=== PATIENT | female | born 1980 | race Caucasian/White ===

== ENCOUNTER 2020-10-24 14:48 | Emergency (ER) | payer BC, SELFPAY ==
--- NOTE | ~2020-10-24 | CT_ITS ---
EXAMINATION: CT brain wo con DATE: 10/24/2020 16:59 INDICATION: Occipital headache TECHNIQUE: Computed tomography (CT) of the head was performed without intravenous contrast. Sagittal and coronal reconstructions were performed. The mA was adjusted according to patient size. Iterative reconstruction technique was employed. The dose-length product was 605.33 mGy-cm. COMPARISON: None FINDINGS: No acute intracranial hemorrhage, acute infarction or abnormal extra axial fluid collection. Ventricl es are normal and symmetric. No mass/mass effect. The orbits, paranasal sinuses and mastoid air cells are normal. IMPRESSION: 1. Normal head CT. Reviewed, dictated and finalized at location A. IMPRESSION: 1. Normal head CT.
[2020-10-24 15:05] VITALS: BP 122/60; PULSE 91; RESP 14; TEMP 36.7; O2SAT 99
[2020-10-24 16:14] LABS: Add Urine Microscopic? YES; Amorphous Sediment Urine Few; Appearance Urine Cloudy (Clear); Bacteria Urine 4+ /hpf; Bilirubin Urine Negative (Negative); Blood Urine Negative (Negative); Color Urine Yellow (Yellow); Glucose Urine UA Negative (Negative); Ketones Urine 2+ mg/dL (Negative); Leukocyte Esterase Ur 1+ LEU/UL (Negative); Mucus Urine Few /lpf; Nitrate Urine Negative (Negative); Protein Urine 1+ mg/dL (Negative); RBC Urine 0-2 /hpf (0-2); Specific Grav Ur 1.012 (1.001-1.035); Squamous Epithelial Cell Urine Many /hpf (Few); Urobilinogen Urine Negative mg/dL (<2.0)
[2020-10-24 17:00] VITALS: BP 126/72; PULSE 87; RESP 20; O2SAT 99
[2020-10-24 17:00] LABS: Basophils Percent Auto 0.4 % (0.2-1.2); Eosinophils Absolute Auto 0.1 K/mm3 (0-0.3); Eosinophils Percent Auto 1.6 % (0-4.4); Hematocrit 38.6 % (37.0-47.0); Hemoglobin 12.5 g/dL (12.0-15.0); Immature Granulocyte Absolute 0.04 K/mm3 (0.00-0.031); Immature Granulocyte Percent A 0.6 % (0-0.5); Lymphocytes Absolute Auto 0.88 K/mm3 (0.9-3.2); Lymphocytes Percent Auto 13.1 % (18.3-44.2); Mean Corpuscular HGB Conc 32.4 g/dl (32-36); Mean Corpuscular Hemoglobin 30.1 pg (26-34); Mean Platelet Volume 10.3 fl (7.4-10.4); Monocytes Absolute Auto 0.4 K/mm3 (0.1-0.6); Monocytes Percent Auto 6.4 % (2.6-8.5); Neutrophils Absolute Auto 5.2 K/mm3 (1.3-6.7); Neutrophils Percent Auto 77.9 % (45.5-73.1); Platelet Count Result 276 k/mm3 (150-375); Red Blood Count 4.15 M/mm3 (4.2-5.4); Red Cell Distribution Width 11.7 % (11.5-14.5); White Blood Count 6.7 K/mm3 (4.5-10.0)
[2020-10-24] MEDS: SODIUM CHLORIDE 0.9% IV 1,000 ML 999 ML IV CONT (17:10)
[2020-10-24] MEDS: MORPHINE SULFATE (*CRX) 4 MG/ML INJ IV PUSH (17:10)
[2020-10-24] MEDS: diphenhydrAMINE HCl INJ 50 MG/ML VIAL 25 MG IV PUSH (17:10)
[2020-10-24] MEDS: PROCHLORPERAZINE EDISYLATE 10 MG/2 ML VIAL 5 MG IV PUSH (17:47)
[2020-10-24 18:13] LABS: Alanine Aminotransferase 28 U/L (4-35); Albumin Level 4.1 g/dL (3.5-5.1); Alkaline Phosphatase 40 U/L (38-126); Anion Gap 7 mmol/L (8-16); Aspartate Amino Transferase 32 U/L (14-36); Bilirubin,Total 0.6 mg/dL (0.2-1.3); Blood Urea Nitrogen 5 mg/dL (7-17); Calcium 8.9 mg/dL (8.4-10.2); Carbon Dioxide 25 mmol/L (22-30); Chloride 107 mmol/L (98-107); Estimated CRCL calculation 114 ml/min; Estimated Glomerular Filt Rate > 60; Glucose 106 mg/dL (65-105); Potassium 3.8 mmol/L (3.4-5.0); Sodium 139 mmol/L (137-145)
--- NOTE | 2020-10-24 18:33 | ED.HA ---
HPI - Headache General Chief Complaint: Headache Stated Complaint: Headache and neck Pain Time Seen by Provider: 10/24/20 16:32 Source: patient and family Mode of arrival: ambulatory Limitations: no limitations History of Present Illness HPI Narrative: 40-year-old with no major medical problems here with complaints of having headache associated with nausea and vomiting. She is states it started this morning unable to control her nausea and vomiting. She denies any fever. No previous history of any migraine headaches. MD elicited complaint: headache Onset description: gradually Location: frontal Severity: moderate Quality & Timing: throbbing Exacerbating factors: none Relieving factors: nothing Associated symptoms: nausea and vomiting Treatments prior to arrival: none Related Data Allergies Allergy/AdvReac Type Severity Reaction Status Date / Time Penicillins Allergy Mild Swelling Verified 06/12/10 13:03 codeine AdvReac Mild Nausea and Verified 06/12/10 20:02 Vomiting Review of Systems Review of Systems: All systems reviewed & are unremarkable except as noted in HPI and below Constitutional: Constitutional: Reports no additional constitutional complaints Eyes: Eyes: Reports no additional eye complaints ENT: Reports system reviewed and no additional complaints, except as documented Cardiovascular: Cardiovascular: Reports no additional cardiovascular complaints Respiratory: Respiratory: Reports no additional respiratory complaints Gastrointestinal: Gastrointestinal: Reports nausea and Reports vomiting Musculoskeletal: Musculoskeletal: Reports no additional musculoskeletal complaints Neurologic: Reports as per HPI Psychiatric: Psychiatric: Reports no additional psychiatric complaints PMFSH Social History Social History Gender identity (if verbalized by the patient): Female Exam Narrative: Exam Narrative: GENERAL: Well-appearing, well-nourished, and in no acute distress. HEAD: Normocephalic, atraumatic. EYES: PERRLA and EOMI. ENT: Nares clear, no rhinorrhea or epistaxis. Mucous membranes moist. NECK: Supple. CHEST: Clear to auscultation. No respiratory distress. HEART: Regular rate and rhythm. No murmur heard. Normal peripheral pulses. ABDOMEN: Soft, nontender, nondistended, normal active bowel sounds. EXTREMITIES: Normal range of motion. No edema. SKIN: Warm, dry, no rash. NEURO: No focal deficits. Alert and oriented x3. PSYCH: Normal mood and affect. Course Course Emergency Course: Patient feeling much better after IV fluids, Compazine and morphine. I discussed lab and CT findings with the patient. She does feel comfortable going home Vital Signs Vital signs: Vital Signs Temperature 36.7 C 10/24/20 15:05 Pulse Rate 91 10/24/20 15:05 Respiratory Rate 14 10/24/20 15:05 Blood Pressure 122/60 10/24/20 15:05 Pulse Oximetry 99 10/24/20 15:05 Temperature 36.7 C 10/24/20 15:05 Pulse Rate 91 10/24/20 15:05 Respiratory Rate 14 10/24/20 15:05 Blood Pressure 122/60 10/24/20 15:05 Pulse Oximetry 99 10/24/20 15:05 MDM - Headache Lab Data Result diagrams: 10/24/20 15:31 10/24/20 17:58 Labs: Lab Results 10/24/20 10/24/20 10/24/20 Range/Units 15:31 16:01 17:58 WBC 6.7 (4.5-10.0) K/mm3 RBC 4.15 L (4.2-5.4) M/mm3 Hgb 12.5 (12.0-15.0) g/dL Hct 38.6 (37.0-47.0) % MCV 93.0 (80-100) fl MCH 30.1 (26-34) pg MCHC 32.4 (32-36) g/dl RDW 11.7 (11.5-14.5) % Plt Count 276 (150-375) k/mm3 MPV 10.3 (7.4-10.4) fl Immature Gran % (Auto) 0.6 H (0-0.5) % Neut % (Auto) 77.9 H (45.5-73.1) % Lymph % (Auto) 13.1 L (18.3-44.2) % [place] % (Auto) 6.4 (2.6-8.5) % Eos % (Auto) 1.6 (0-4.4) % Baso % (Auto) 0.4 (0.2-1.2) % Lymph # (Auto) 0.88 L (0.9-3.2) K/mm3 [place] # (Auto) 0.4 (0.1-0.6) K/mm3 Eos # (Auto) 0.1
[2020-10-24 18:53] VITALS: BP 132/78; PULSE 72; RESP 18; O2SAT 99
== END 2020-10-24 18:54 | disposition home or self-care (01) ==
PROVIDERS: Emergency Provider Family Medicine; PCP Internal Medicine
DX: G43.019 Migraine without aura, intractable, without status migrainosus (principal)
CPT/HCPCS: 36415; 70450; 80053; 81001; 81025; 85025; 87086; 87088; 96361; 96374; 96375; 99284; J0780; J1200; J2270; J7030

== ENCOUNTER → 2020-10-29 14:16 | Outpatient (CLI) | payer BC, SELFPAY ==
--- NOTE | ~2020-10-29 | CT_ITS ---
EXAMINATION: CT abdomen pelvis wo/w con DATE: 10/29/2020 14:56 INDICATION: Recurrent UTIs. Flank pain. TECHNIQUE: Computed tomography (CT) of the abdomen and pelvis was performed without intravenous contr ast. The dose-length product was 1154.58 mGy-cm. Automated exposure control and iterative reconstruct ion technique were employed. COMPARISON: CT dated 06/12/2010. FINDINGS: No renal/ureteral stones. No hydronephrosis. Lung bases are unremarkable. No significant pl eural or pericardial effusion. Heart size is normal. There are cholecystectomy clips. No significant vascular abnormality. No lymphadenopathy. 2.6 cm right ovarian cyst. Small amount of free fluid in th e pelvis. There are nabothian cysts. Fatty infiltration of the liver. The spleen, pancreas, adrenal glands and kidneys are unremarkable. U reters are normal in course and caliber. Bladder is unremarkable. No acute osseous abnormality. No fr ee air. Nonobstructive bowel gas pattern. IMPRESSION: 1. Right ovarian cyst measuring 2.6 cm with small amount of free fluid, likely physiologic. Reviewed, dictated and finalized at location D.
== END ==
PROVIDERS: PCP Internal Medicine
DX: N39.0 Urinary tract infection, site not specified (principal); N83.201 Unspecified ovarian cyst, right side
CPT/HCPCS: 74178; Q9967

== ENCOUNTER 2022-10-16 11:50 | Emergency (ER) | payer BC, SELFPAY ==
[2022-10-16] VITALS (13 sets, daily range): BP systolic 112–138; BP diastolic 66–87; PULSE 59–115; RESP 12–24; TEMP 37.1; O2SAT 98–100
--- NOTE | ~2022-10-16 | XR_ITS ---
XR chest 2V DATE: 10/16/2022 12:22 INDICATION: Right chest pain. Palpitations. TECHNIQUE: PA and lateral views COMPARISON: None FINDINGS: Normal heart size. No hilar or mediastinal enlargement. No pulmonary infiltrate or consolid ation, pleural effusion or pulmonary vascular congestion or pneumothorax. IMPRESSION: No active cardiopulmonary disease Reviewed, dictated and finalized at location L.
--- NOTE | 2022-10-16 11:55 | ECG_ITS ---
Measurements Intervals [place] Rate: 98 P: 64 CA: 150 QRS: 68 QRSD: 94 T: 47 QT: 340 QTc: 436 Interpretive Statements SINUS RHYTHM WITH SINUS ARRHYTHMIA NO PREVIOUS ECG AVAILABLE FOR COMPARISON Electronically Signed On 10-16-2022 13:48:45 CDT by Eunice Valles M.D.
[2022-10-16 12:17] LABS: Basophils Percent Auto 0.5 % (0.2-1.2); Eosinophils Absolute Auto 0.1 K/mm3 (0-0.3); Eosinophils Percent Auto 1.3 % (0-4.4); Hematocrit 41.9 % (37.0-47.0); Hemoglobin 13.4 g/dL (12.0-15.0); Immature Granulocyte Absolute 0.02 K/mm3 (0.00-0.031); Immature Granulocyte Percent A 0.4 % (0-0.5); Lymphocytes Absolute Auto 0.96 K/mm3 (0.9-3.2); Lymphocytes Percent Auto 17.5 % (18.3-44.2); Mean Corpuscular Hemoglobin 29.9 pg (26-34); Mean Corpuscular Volume 93.5 fl (80-100); Mean Platelet Volume 9.4 fl (7.4-10.4); Monocytes Absolute Auto 0.5 K/mm3 (0.1-0.6); Monocytes Percent Auto 8.5 % (2.6-8.5); Neutrophils Percent Auto 71.8 % (45.5-73.1); Platelet Count Result 316 k/mm3 (150-375); Red Blood Count 4.48 M/mm3 (4.2-5.4); Red Cell Distribution Width 11.8 % (11.5-14.5); White Blood Count 5.5 K/mm3 (4.5-10.0)
[2022-10-16 12:27] LABS: Alanine Aminotransferase 20 U/L (6-35); Albumin Level 4.6 g/dL (3.5-5.1); Alkaline Phosphatase 40 U/L (38-126); Anion Gap 7 mmol/L (8-16); Aspartate Amino Transferase 27 U/L (14-36); Bilirubin,Total 0.5 mg/dL (0.2-1.3); Blood Urea Nitrogen 8 mg/dL (7-17); Calcium 8.7 mg/dL (8.4-10.2); Carbon Dioxide 24 mmol/L (22-30); Chloride 107 mmol/L (98-107); Estimated CRCL calculation 95 ml/min; Estimated Glomerular Filt Rate > 60; Glucose 106 mg/dL (65-110); Lipase 106 U/L (23-300); Potassium 3.8 mmol/L (3.4-5.0); Sodium 138 mmol/L (137-145)
[2022-10-16 12:38] LABS: Troponin I < 0.012 ng/mL (0.000-0.034)
[2022-10-16 12:41] LABS: Partial Thromboplastin Time 23.8 SECONDS (22.3-36.8)
[2022-10-16 12:50] LABS: INR 0.9; Prothrombin Time 12.9 Seconds (11.1-14.7)
--- NOTE | 2022-10-16 14:03 | ED.ARRPALP ---
HPI - Arrhythmia/Palpitations General Chief Complaint: Arrhythmia/Palpitations Stated Complaint: heart racing Time Seen by Provider: 10/16/22 12:54 History of Present Illness HPI narrative: This is a 42-year-old female who denies significant past medical history, presenting to the emergency department complaining of palpitations for the past 4 hours. The patient states she was seated at work, when she noticed quick onset palpitations, associated with lightheadedness and dull pain of the right chest. The pain is rated 5/10 and does not radiate; it is aggravated by deep breathing. Related Data Allergies Allergy/AdvReac Type Severity Reaction Status Date / Time Penicillins Allergy Mild Swelling Verified 10/16/22 12:42 codeine AdvReac Mild Nausea and Verified 10/16/22 12:42 Vomiting Review of Systems Review of Systems: CONSTITUTIONAL: Denies fever, chills, or sweats. CARDIOVASCULAR: Right-sided chest pain, palpitations denies edema. RESPIRATORY: Denies cough or dyspnea. GASTROINTESTINAL: Denies abdominal pain, nausea, vomiting, or diarrhea. GENITOURINARY: Denies dysuria or hematuria. SKIN: Denies rash or itching. MUSCULOSKELETAL: Denies back pain, joint pain, or myalgia. NEUROLOGIC: Intermittent lightheadedness denies headache, numbness, dizziness, or weakness. PSYCHIATRIC: Denies anxiety or depression. PMFSH Past Medical History Medical History Acne Surgical History Surgical History History of gynecological procedure (03/13/15) right ovarian cyst; pelvic adhesive disease History of gynecological procedure (09/08/17) Mirena iud insertion & removal Mirena iud History of hysteroscopy (07/08/18) hysteroscopy with removal of retained IUD device/ Laparoscopic bilateral salpingectomy Social History Social History Gender identity (if verbalized by the patient): Female Exam Narrative: GENERAL: Well-developed, well-nourished, and in no acute distress. HEAD: Normocephalic, atraumatic. EYES: PERRLA and EOMI. ENT: Nares clear, no rhinorrhea or epistaxis. Mucous membranes moist. Oropharynx without tonsillar hypertrophy exudate or other lesions. CHEST: Clear to auscultation. No respiratory distress. No wheezes rales or rhonchi HEART: Regular rate and rhythm. No murmur heard. Normal peripheral pulses. ABDOMEN: Soft, nontender, nondistended, normal active bowel sounds. EXTREMITIES: Normal range of motion. No edema. SKIN: Warm, dry, no rash. NEURO: No focal deficits. Alert and oriented x3. PSYCH: Normal mood and affect. Course Course Emergency Course: 14:07 - EKG unremarkable. Initial troponin negative. Chemistries unremarkable. CBC unremarkable. TSH within normal limits. Will add a D-dimer and scan for PE if positive. We will give IV fluids and reassess. 15:40 - Repeat troponin and D-dimer negative. I do not suspect life-threatening cause for palpitations. I discussed the findings with recommendation for the patient to follow-up with her primary care doctor for Holter monitoring. Discussed return and emergency precautions including signs/symptoms of ACS and arrhythmia. The patient voiced understanding and is comfortable with the plan. All questions answered to her satisfaction. Vital Signs Vital signs: Vital Signs Temperature 98.7 F 10/16/22 11:47 Pulse Rate 98 10/16/22 11:47 Respiratory Rate 16 10/16/22 11:47 Blood Pressure 138/87 10/16/22 11:47 Pulse Oximetry 98 10/16/22 11:47 Oxygen Delivery Room Air 10/16/22 11:47 Temperature 98.7 F 10/16/22 11:47 Pulse Rate 75 10/16/22 16:50 Respiratory Rate 20 10/16/22 16:50 Blood Pressure 116/66 10/16/22 16:50 Pulse Oximetry 98 10/16/22 16:50 Oxygen Delivery Room Air 10/16/22 12:00 MDM - Arrhythmia/Palpitations MDM Narrative Medi
[2022-10-16 14:56] LABS: D Dimer < 0.27 ug/mL (<0.48)
[2022-10-16 15:02] LABS: Troponin I < 0.012 ng/mL (0.000-0.034)
[2022-10-16] MEDS: LACTATED RINGERS 2,000 ML 999 ML IV CONT (15:10)
== END 2022-10-16 16:50 | disposition home or self-care (01) ==
PROVIDERS: Emergency Medicine; Emergency Provider Preventive Medicine Aerospace Medicine; PCP Internal Medicine
DX: R00.2 Palpitations (principal)
CPT/HCPCS: 36415; 71046; 80053; 83690; 84443; 84484; 85025; 85380; 85610; 85730; 93005; 96360; 96361; 99284; J7120